=== PATIENT | female | born 1965 ===

== ENCOUNTER → 2017-04-21 08:24 | Outpatient (CLI) | payer OTHER ==
[~2017-04-21 08:24] MED LIST: ZANTAC300 MG PO
== END | disposition home or self-care (01) ==
LOC: LAB 08:24
DX: Z90.13 Acquired absence of bilateral breasts and nipples (principal)

== ENCOUNTER → 2017-04-21 08:30 | Outpatient (CLI) | payer OTHER | END | disposition home or self-care (01) | LOC: RAD 08:30 | DX: Z90.13 Acquired absence of bilateral breasts and nipples (principal) ==

== ENCOUNTER → 2017-04-21 08:35 | Outpatient (CLI) | payer OTHER | END | disposition home or self-care (01) | LOC: EKG 08:35 | DX: Z90.13 Acquired absence of bilateral breasts and nipples (principal) ==